=== PATIENT | male | born 1960 | race Hispanic/Latino ===

== ENCOUNTER 2017-08-20 16:11 | Inpatient (IN) | payer MEDICAID, OTHER ==
[~2017-08-20] VITALS: Ht 177.8 cm; Wt 101.2 kg
[2017-08-20 17:11] LABS: BASOPHILS % (AUTO) 0.4 % (0.0-5.0); EOSINOPHILS % (AUTO) 1.4 % (0.0-8.0); LYMPHOCYTES % (AUTO) 4.2 % (21.0-51.0); MEAN CORPUSCULAR HEMOGLOBIN 31.2 pg (27.0-33.0); MEAN CORPUSCULAR HGB CONC 34.1 g/dL (32.0-36.0); MEAN CORPUSCULAR VOLUME 91.3 fL (79-99); MONOCYTES % (AUTO) 5.9 % (3.0-13.0); NEUTROPHILS % (AUTO) 88.1 % (40.0-77.0); NUCLEATED RED BLOOD CELLS 0.1 % (0.0-0.19); PLATELET COUNT (AUTO) 218 K/uL (130-400); RED BLOOD CELL COUNT(AUTO) 4.49 MIL/uL (4.50-6.20); RED CELL DISTRIBUTION WIDTH 14.9 % (11.0-15.5); WHITE BLOOD COUNT (AUTO) 15.6 K/uL (4.8-10.8)
[2017-08-20 17:31] LABS: CREATININE 3.7 mg/dL (0.5-1.5); POTASSIUM 3.9 mmol/L (3.5-5.1)
[2017-08-20 17:41] LABS: INR 1.24 (0.85-1.15); PARTIAL THROMBOPLASTIN TIME 35.5 SEC (26.3-35.5)
[2017-08-20 17:43] LABS: CREATINE KINASE MB 11.2 ng/mL (0.5-3.6)
[2017-08-20 17:44] LABS: ALBUMIN 2.2 g/dL (3.5-5.0); TOTAL PROTEIN, SERUM 6.7 g/dL (6.0-8.3)
[2017-08-20 17:48] LABS: BILIRUBIN,DIRECT 14.5 mg/dL (0.0-0.3); BILIRUBIN,TOTAL 17.5 mg/dL (0.2-1.0)
[2017-08-20 17:49] LABS: TROPONIN I 3.46 ng/mL (0.00-0.06)
[2017-08-20] MEDS ORDERED: SODIUM CHLORIDE 0.9% 1000ML 1,000 ML IV ONE (18:41)
[2017-08-20] MEDS ORDERED: MORPHINE SULFATE 4 MG/1ML SYG ONE (18:41)
[2017-08-20] MEDS ORDERED: ONDANSETRON HCL MDV 20ML 2 MG/ML VIAL ONE (18:42)
[2017-08-21] MEDS ORDERED: FAMOTIDINE/PF 20 MG/2 ML VIAL IV SCH ×2 (03:30→09:59)
[2017-08-21] MEDS ORDERED: SODIUM CHLORIDE 0.9% 1000ML 1,000 ML IV ONE (05:48)
[2017-08-21] MEDS ORDERED: FAMOTIDINE/PF 20 MG/2 ML VIAL IV ONE (05:49)
[2017-08-21 10:00] VITALS: BP 110/54
[2017-08-21] MEDS ORDERED: ONDANSETRON HCL 4 MG/2 ML VIAL IVP PRN (10:00)
[2017-08-21] MEDS: MEROPENEM 500 MG VIAL IVP SCH ×2 (13:42→20:18)
[2017-08-21] MEDS: THIAMINE HCL 100 MG TABLET PO SCH (13:45)
[2017-08-21] MEDS: SODIUM CHLORIDE 0.9% 1000ML 1,000 ML IV SCH (13:45)
[2017-08-21] MEDS ORDERED: MEROPENEM 500MG+NS 50ML 50 ML IV SCH (14:00)
[2017-08-21 16:00] VITALS: BP 122/63
[2017-08-21 19:04] LABS: CREATINE KINASE MB 17.8 ng/mL (0.5-3.6)
[2017-08-21 19:15] LABS: TROPONIN I 4.32 ng/mL (0.00-0.06)
[2017-08-21] MEDS: METOPROLOL TARTRATE 25 MG TAB PO SCH (20:18)
[2017-08-21 23:23] VITALS: BP 120/65
[2017-08-21] MEDS: MORPHINE SULFATE 2 MG/ML 1ML SYG IVP PRN (23:37)
[2017-08-22 01:14] LABS: CREATINE KINASE MB 15.4 ng/mL (0.5-3.6)
[2017-08-22 01:16] LABS: TROPONIN I 4.72 ng/mL (0.00-0.06)
[2017-08-22 03:45] VITALS: BP 113/64
[2017-08-22 04:39] LABS: HEMATOCRIT 39.2 % (42-54); MEAN CORPUSCULAR HEMOGLOBIN 31.9 pg (27.0-33.0); MEAN CORPUSCULAR HGB CONC 34.5 g/dL (32.0-36.0); MEAN CORPUSCULAR VOLUME 92.5 fL (79-99); PLATELET COUNT (AUTO) 239 K/uL (130-400); RED BLOOD CELL COUNT(AUTO) 4.24 MIL/uL (4.50-6.20); RED CELL DISTRIBUTION WIDTH 15.2 % (11.0-15.5); WHITE BLOOD COUNT (AUTO) 10.2 K/uL (4.8-10.8)
[2017-08-22 04:51] LABS: ALBUMIN 1.8 g/dL (3.5-5.0); BILIRUBIN,TOTAL 15.8 mg/dL (0.2-1.0); CREATININE 2.7 mg/dL (0.5-1.5); MAGNESIUM 2.9 mg/dL (1.80-2.40); PHOSPHORUS 3.8 mg/dL (2.5-4.9); TOTAL PROTEIN, SERUM 6.3 g/dL (6.0-8.3); URIC ACID 6.5 mg/dL (2.6-7.2)
[2017-08-22 04:56] LABS: INR 1.21 (0.85-1.15); PROTHROMBIN TIME 12.7 SEC (9.6-11.6)
[2017-08-22] MEDS: MEROPENEM 500 MG VIAL IVP SCH ×3 (05:20→20:37)
[2017-08-22 07:37] VITALS: BP 119/94
[2017-08-22] MEDS: THIAMINE HCL 100 MG TABLET PO SCH (07:53)
[2017-08-22] MEDS: METOPROLOL TARTRATE 25 MG TAB PO SCH ×2 (07:53→20:37)
[2017-08-22] MEDS: FOLIC ACID/VITAMIN B COMP W-C 1 MG CAPSULE PO SCH (07:53)
[2017-08-22] MEDS: MORPHINE SULFATE 2 MG/ML 1ML SYG IVP PRN (07:54)
[2017-08-22] MEDS: SODIUM CHLORIDE 0.9% 1000ML 1,000 ML IV SCH (07:55)
[2017-08-22] MEDS ORDERED: THIAMINE HCL 100 MG/ML 2ML VIAL IVP SCH (09:00)
[2017-08-22] MEDS ORDERED: FAMOTIDINE/PF 20 MG/2 ML VIAL IV SCH (09:00)
[2017-08-22 11:17] VITALS: BP 95/57
[2017-08-22 16:19] VITALS: BP 102/63
[2017-08-22] MEDS ORDERED: FUROSEMIDE 10 MG/ML 4ML VIAL ONE (17:39)
[2017-08-22 19:45] VITALS: BP 109/58
[2017-08-22 23:34] VITALS: BP 101/60
[2017-08-23 04:40] LABS: HEMATOCRIT 39.8 % (42-54); MEAN CORPUSCULAR HEMOGLOBIN 31.5 pg (27.0-33.0); MEAN CORPUSCULAR HGB CONC 34.1 g/dL (32.0-36.0); MEAN CORPUSCULAR VOLUME 92.5 fL (79-99); NUCLEATED RED BLOOD CELLS 0.1 % (0.0-0.19); PLATELET COUNT (AUTO) 211 K/uL (130-400); RED CELL DISTRIBUTION WIDTH 15.3 % (11.0-15.5)
[2017-08-23 04:59] LABS: HEMOGLOBIN A1C 4.9 % (4.0-6.0)
[2017-08-23] MEDS: MEROPENEM 500 MG VIAL IVP SCH ×4 (05:01→21:28)
[2017-08-23 05:07] LABS: BAND NEUTROPHILS % (MANUAL) 3 % (0-2); BASOPHILS % (MANUAL) 1 % (0-2); EOSINOPHILS % (MANUAL) 13 % (1-6); LYMPHOCYTES % (MANUAL) 17 % (22-44); MAN.DIFF COMMENT-IMPRESSION MANUAL DIFFERENTIAL; MONOCYTES % (MANUAL) 3 % (2-9); PLATELET MORPHOLOGY COMMENT ADEQUATE; SEGMENTED NEUTROPHILS % 63 % (40-70)
[2017-08-23 05:27] LABS: ALBUMIN 1.8 g/dL (3.5-5.0); CREATININE 2.5 mg/dL (0.5-1.5); MAGNESIUM 2.7 mg/dL (1.80-2.40); POTASSIUM 4.1 mmol/L (3.5-5.1); TOTAL PROTEIN, SERUM 6.2 g/dL (6.0-8.3)
[2017-08-23 05:33] LABS: % IRON SATURATION 21.1 % (30-44)
[2017-08-23 05:34] LABS: BILIRUBIN,DIRECT 13.2 mg/dL (0.0-0.3)
[2017-08-23 05:39] VITALS: BP 118/65
[2017-08-23 08:07] VITALS: BP 116/63
[2017-08-23] MEDS: FOLIC ACID/VITAMIN B COMP W-C 1 MG CAPSULE PO SCH (09:52)
[2017-08-23] MEDS: THIAMINE HCL 100 MG TABLET PO SCH (09:52)
[2017-08-23] MEDS: METOPROLOL TARTRATE 25 MG TAB PO SCH ×2 (09:52→20:47)
[2017-08-23 11:48] VITALS: BP 117/65
[2017-08-23 16:00] VITALS: BP 113/61
[2017-08-23] MEDS: MORPHINE SULFATE 2 MG/ML 1ML SYG IVP PRN (16:07)
[2017-08-23 19:37] VITALS: BP 116/62
[2017-08-23] MEDS: FAMOTIDINE 20MG TAB 20 MG TAB PO SCH (20:47)
[2017-08-23 23:34] VITALS: BP 103/52
[2017-08-24 03:54] VITALS: BP 128/65
[2017-08-24 04:57] LABS: HEMATOCRIT 40.2 % (42-54); MEAN CORPUSCULAR HEMOGLOBIN 31.7 pg (27.0-33.0); MEAN CORPUSCULAR HGB CONC 34.3 g/dL (32.0-36.0); MEAN CORPUSCULAR VOLUME 92.5 fL (79-99); PLATELET COUNT (AUTO) 244 K/uL (130-400); RED BLOOD CELL COUNT(AUTO) 4.35 MIL/uL (4.50-6.20); RED CELL DISTRIBUTION WIDTH 15.6 % (11.0-15.5); WHITE BLOOD COUNT (AUTO) 9.5 K/uL (4.8-10.8)
[2017-08-24 05:03] LABS: CREATININE 2.3 mg/dL (0.5-1.5)
[2017-08-24] MEDS: MEROPENEM 500 MG VIAL IVP SCH ×3 (05:39→22:14)
[2017-08-24 06:02] LABS: BAND NEUTROPHILS % (MANUAL) 1 % (0-2); BASOPHILS % (MANUAL) 1 % (0-2); EOSINOPHILS % (MANUAL) 12 % (1-6); LYMPHOCYTES % (MANUAL) 12 % (22-44); MAN.DIFF COMMENT-IMPRESSION MANUAL DIFFERENTIAL; MONOCYTES % (MANUAL) 10 % (2-9); SEGMENTED NEUTROPHILS % 64 % (40-70)
[2017-08-24 06:03] LABS: PLATELET MORPHOLOGY COMMENT ADEQUATE
[2017-08-24 07:11] LABS: INR 1.28 (0.85-1.15); PARTIAL THROMBOPLASTIN TIME 29.7 SEC (26.3-35.5); PROTHROMBIN TIME 13.4 SEC (9.6-11.6)
[2017-08-24 08:00] VITALS: BP 119/69
[2017-08-24 08:25] LABS: HEPATITIS A ANTIBODY IGM Negative (Negative); HEPATITIS B CORE IGM Negative (Negative); HEPATITIS Bs ANTIGEN SCREEN P Negative (Negative)
[2017-08-24] MEDS: FAMOTIDINE 20MG TAB 20 MG TAB PO SCH ×2 (09:00→20:34)
[2017-08-24] MEDS: THIAMINE HCL 100 MG TABLET PO SCH (09:00)
[2017-08-24] MEDS: METOPROLOL TARTRATE 25 MG TAB PO SCH ×2 (09:00→20:34)
[2017-08-24] MEDS: FOLIC ACID/VITAMIN B COMP W-C 1 MG CAPSULE PO SCH (09:00)
[2017-08-24 11:26] VITALS: BP 128/74
[2017-08-24] MEDS: REGADENOSON 0.4 MG/5 ML PF SYG IVP SCH ×2 (11:30→13:51)
[2017-08-24 16:00] VITALS: BP 117/59
[2017-08-24] MEDS ORDERED: HONEY 1 APPL/ML TUBE TP SCH (19:00)
[2017-08-24 19:40] VITALS: BP 122/62
[2017-08-24] MEDS: MORPHINE SULFATE 2 MG/ML 1ML SYG IVP PRN (20:54)
[2017-08-24 23:23] VITALS: BP 95/51
[2017-08-25 03:46] VITALS: BP 109/57
[2017-08-25 05:01] LABS: HEMATOCRIT 38.8 % (42-54); MEAN CORPUSCULAR HEMOGLOBIN 31.7 pg (27.0-33.0); MEAN CORPUSCULAR HGB CONC 34.5 g/dL (32.0-36.0); MEAN CORPUSCULAR VOLUME 91.9 fL (79-99); PLATELET COUNT (AUTO) 211 K/uL (130-400); RED BLOOD CELL COUNT(AUTO) 4.22 MIL/uL (4.50-6.20); RED CELL DISTRIBUTION WIDTH 15.4 % (11.0-15.5); WHITE BLOOD COUNT (AUTO) 10.3 K/uL (4.8-10.8)
[2017-08-25 05:37] LABS: CREATININE 2.3 mg/dL (0.5-1.5); MAGNESIUM 2.7 mg/dL (1.80-2.40); POTASSIUM 4.1 mmol/L (3.5-5.1)
[2017-08-25] MEDS: MEROPENEM 500 MG VIAL IVP SCH ×3 (06:08→21:46)
[2017-08-25 07:45] VITALS: BP 113/62
[2017-08-25] MEDS: THIAMINE HCL 100 MG TABLET PO SCH (07:54)
[2017-08-25] MEDS: FOLIC ACID/VITAMIN B COMP W-C 1 MG CAPSULE PO SCH (07:54)
[2017-08-25] MEDS: FAMOTIDINE 20MG TAB 20 MG TAB PO SCH ×2 (07:54→21:46)
[2017-08-25] MEDS: METOPROLOL TARTRATE 25 MG TAB PO SCH ×2 (07:54→21:46)
[2017-08-25 11:34] VITALS: BP 119/59
[2017-08-25 16:25] VITALS: BP 98/48
[2017-08-25 18:50] VITALS: BP 123/62
[2017-08-25 20:17] LABS: APPEARANCE,URINE CLEAR (CLEAR); BILIRUBIN,URINE Large (NEGATIVE); COLOR,URINE Dark Yellow (YELLOW); GLUCOSE, URINE (UA) Negative (NEGATIVE); KETONES,URINE Negative (NEGATIVE); LEUKOCYTE ESTERASE ,URINE Small (NEGATIVE); NITRATE,URINE Negative (NEGATIVE); OCCULT BLOOD,URINE Large (NEGATIVE); PH,URINE 5.5 (5.0-8.0); PROTEIN,URINE Negative (NEGATIVE)
[2017-08-25 20:26] LABS: BACTERIA,URINE Few /HPF (None Seen)
[2017-08-25 20:27] LABS: SQUAMOUS EPITHELIAL CELL,UR 0-2 /HPF (0-2)
[2017-08-25 22:49] VITALS: BP 115/53
[2017-08-26 04:00] VITALS: BP 116/60
[2017-08-26 04:28] LABS: HEMATOCRIT 39.1 % (42-54); MEAN CORPUSCULAR HEMOGLOBIN 32.1 pg (27.0-33.0); MEAN CORPUSCULAR HGB CONC 35.2 g/dL (32.0-36.0); MEAN CORPUSCULAR VOLUME 91.2 fL (79-99); PLATELET COUNT (AUTO) 209 K/uL (130-400); RED BLOOD CELL COUNT(AUTO) 4.29 MIL/uL (4.50-6.20); RED CELL DISTRIBUTION WIDTH 15.5 % (11.0-15.5); WHITE BLOOD COUNT (AUTO) 10.9 K/uL (4.8-10.8)
[2017-08-26 04:42] LABS: CREATININE 2.4 mg/dL (0.5-1.5); POTASSIUM 3.9 mmol/L (3.5-5.1)
[2017-08-26] MEDS: MEROPENEM 500 MG VIAL IVP SCH ×2 (06:20→15:12)
[2017-08-26 07:59] VITALS: BP 96/51
[2017-08-26] MEDS: METOPROLOL TARTRATE 25 MG TAB PO SCH (08:13)
[2017-08-26] MEDS: FAMOTIDINE 20MG TAB 20 MG TAB PO SCH (08:13)
[2017-08-26] MEDS: FOLIC ACID/VITAMIN B COMP W-C 1 MG CAPSULE PO SCH (08:13)
[2017-08-26] MEDS: THIAMINE HCL 100 MG TABLET PO SCH (08:13)
[2017-08-26 11:25] VITALS: BP 118/69
[2017-08-26 16:29] VITALS: BP 128/66
[2017-08-26] MEDS ORDERED: ASPIRIN 81 MG EC TAB PO SCH (16:45)
[2017-08-26] MEDS ORDERED: ONDANSETRON HCL MDV 20ML 2 MG/ML VIAL IVP PRN (16:49)
[2017-08-26] MEDS ORDERED: METO25 PO (17:47)
[2017-08-26] MEDS ORDERED: AEC81 PO (17:47)
[2017-08-26] MEDS ORDERED: Folic Acid/Vitamin B Comp W-C PO (17:47)
[2017-08-26] MEDS ORDERED: CLAR500T PO (17:47)
[2017-08-26] MEDS ORDERED: FAMO20TA8 PO (17:47)
[2017-08-26] MEDS ORDERED: THIAM100TB PO (17:47)
[2017-08-26] MEDS ORDERED: METR500T4 PO (17:47)
== END 2017-08-26 18:50 | disposition home or self-care (01) | DRG 441 ==
LOC: EDH 16:11 → EDHIP 16:12 → 4BH 08-21 09:53 → 2AH 08-21 12:10
PROVIDERS: ADMIT Internal Medicine Nephrology; ATTEND Internal Medicine Nephrology
DX: K76.0 Fatty (change of) liver, not elsewhere classified (principal); K85.90 Acute pancreatitis without necrosis or infection, unspecified; I21.4 Non-ST elevation (NSTEMI) myocardial infarction; D68.9 Coagulation defect, unspecified; N17.9 Acute kidney failure, unspecified; E66.01 Morbid (severe) obesity due to excess calories; E88.09 Other disorders of plasma-protein metabolism, not elsewhere classified; R18.8 Other ascites; N18.3 Chronic kidney disease, stage 3 (moderate); E87.1 Hypo-osmolality and hyponatremia; L97.909 Non-pressure chronic ulcer of unspecified part of unspecified lower leg with unspecified severity; K86.1 Other chronic pancreatitis; K74.60 Unspecified cirrhosis of liver; B96.81 Helicobacter pylori [H. pylori] as the cause of diseases classified elsewhere; D64.9 Anemia, unspecified; F10.10 Alcohol abuse, uncomplicated; I10 Essential (primary) hypertension; I48.91 Unspecified atrial fibrillation; I51.7 Cardiomegaly; K75.9 Inflammatory liver disease, unspecified; N20.0 Calculus of kidney; N28.1 Cyst of kidney, acquired; Z68.32 Body mass index [BMI] 32.0-32.9, adult; Z91.14 Patient's other noncompliance with medication regimen; Z91.19 Patient's noncompliance with other medical treatment and regimen
CPT/HCPCS: 36415; 71046; 74176; 74183; 76705; 78452; 80048; 80053; 80074; 80076; 81001; 82105; 82140; 82150; 82378; 82550; 82553; 82728; 83036; 83540; 83550; 83690; 83735; 83874; 84100; 84478; 84484; 84550; 85025; 85027; 85610; 85730; 86038; 86255; 86316; 86677; 87040; 93005; 93017; 93306; 93970; 96374; A4218; A9500; J1940; J2185; J2270; J2785; J3490; J7030

== ENCOUNTER 2017-09-12 10:41 | Emergency (ER) | payer MEDICAID, OTHER ==
[~2017-09-12 10:41] MED LIST: AEC81 PO; CLAR500T PO; FAMO20TA8 PO; Folic Acid/Vitamin B Comp W-C PO; METO25 PO; METR500T4 PO; THIAM100TB PO
[2017-09-12] MEDS ORDERED: DEXTROSE 50%-WATER 50 ML DISP.SYRIN IV ONE ×2 (11:04→12:00)
[2017-09-12] MEDS ORDERED: INSULIN HUMULIN R 100 UNIT/ML 3ML ONE (11:27)
[2017-09-12] MEDS ORDERED: SODIUM BICARB 50MEQ 50ML VIAL ONE (11:27)
[2017-09-12 11:30] LABS: POTASSIUM 5.5 mmol/L (3.5-5.1)
[2017-09-12] MEDS ORDERED: EPINEPHRINE 1 MG/ML 30ML VIAL IJ ONE (11:30)
[2017-09-12 11:35] LABS: ALBUMIN 1.7 g/dL (3.5-5.0); BASOPHILS % (AUTO) 0.4 % (0.0-5.0); HEMATOCRIT 39.5 % (42-54); LYMPHOCYTES % (AUTO) 22.6 % (21.0-51.0); MEAN CORPUSCULAR HEMOGLOBIN 32.1 pg (27.0-33.0); MEAN CORPUSCULAR HGB CONC 34.4 g/dL (32.0-36.0); MEAN CORPUSCULAR VOLUME 93.2 fL (79-99); MONOCYTES % (AUTO) 2.4 % (3.0-13.0); NEUTROPHILS % (AUTO) 59.6 % (40.0-77.0); NUCLEATED RED BLOOD CELLS 0.2 % (0.0-0.19); PLATELET COUNT (AUTO) 100 K/uL (130-400); RED BLOOD CELL COUNT(AUTO) 4.24 MIL/uL (4.50-6.20); RED CELL DISTRIBUTION WIDTH 18.7 % (11.0-15.5); WHITE BLOOD COUNT (AUTO) 2.8 K/uL (4.8-10.8)
[2017-09-12 11:47] LABS: TOTAL PROTEIN, SERUM 5.8 g/dL (6.0-8.3)
[2017-09-12] MEDS ORDERED: SODIUM BICARB 8.4% 50ML SYRINGE IVP ONE (12:00)
[2017-09-12] MEDS ORDERED: CALCIUM CHLORIDE 100 MG/ML 10 ML SYG IVP ONE (12:00)
[2017-09-12] MEDS ORDERED: EPINEPHRINE 0.1 MG/ML 10 ML SYG IVP ONE (12:00)
[2017-09-12] MEDS ORDERED: SUCCINYLCHOLINE CHLORIDE 20 MG/ML 10 ML VIAL IVP ONE (12:00)
[2017-09-12] MEDS ORDERED: MAGNESIUM SULFATE 1 GM/2 ML VIAL IM ONE (12:00)
[2017-09-12 12:53] LABS: BILIRUBIN,TOTAL 37.9 mg/dL (0.2-1.0)
[2017-09-12 13:22] LABS: BAND NEUTROPHILS % (MANUAL) 1 % (0-2); EOSINOPHILS % (MANUAL) 15 % (1-6); LYMPHOCYTES % (MANUAL) 18 % (22-44); METAMYELOCYTES % 1 % (0-0); MONOCYTES % (MANUAL) 1 % (2-9); SEGMENTED NEUTROPHILS % 64 % (40-70)
[2017-09-12 13:23] LABS: MAN.DIFF COMMENT-IMPRESSION MANUAL DIFFERENTIAL; PLATELET MORPHOLOGY COMMENT SLIGHTLY DECREASED
== END 2017-09-12 14:16 | disposition expired ==
LOC: EDH 10:41
DX: I46.9 Cardiac arrest, cause unspecified (principal); E16.2 Hypoglycemia, unspecified; I10 Essential (primary) hypertension
CPT/HCPCS: 31500; 36415 ×2; 80053; 82140; 82948 ×2; 85007; 85025; 87040 ×2; 87186 ×3; 92950; 96374; 99285; J0171 ×2; J0330; J1815; J3475; J3490 ×3; J7070 ×2